=== PATIENT | female | born 1995 | race Two or more races ===

== ENCOUNTER 2017-05-07 20:24 | Emergency (ER) | payer MEDICAID, OTHER ==
[~2017-05-07] VITALS: Ht 160 cm; Wt 98.0 kg
[2017-05-07 21:02] VITALS: BP 117/69
== END 2017-05-07 22:09 | disposition home or self-care (01) ==
LOC: ER 20:30
DX: R05 Cough (principal)
CPT/HCPCS: 84703-TC; A4606; Z7610

== ENCOUNTER 2017-08-17 15:06 | Emergency (ER) | payer MEDICAID ==
[~2017-08-17] VITALS: Ht 157.5 cm; Wt 95.3 kg
[2017-08-17 15:19] VITALS: BP 115/75
== END 2017-08-17 15:47 | disposition home or self-care (01) ==
LOC: ER 15:10
DX: H66.91 Otitis media, unspecified, right ear (principal)
CPT/HCPCS: A4606; Z7610

== ENCOUNTER 2017-09-02 16:38 | Emergency (ER) | payer MEDICAID ==
[~2017-09-02] VITALS: Ht 162.6 cm; Wt 97.5 kg
--- NOTE | 2017-09-02 16:40 | NUR ---
BIB SELF C/O LEFT SIDED CHEST PAIN, WORSE ON DEEP INHALATION X 3 DAYS, NAD NOTED, VSS RESP EVEN AND UNLABORED, PUT ON HOSPITAL GOWN AND MONITOR. WAITING FOR MD GUERRA.
[2017-09-02 17:29] LABS: BASOPHILS % (AUTO) 0.3 % (0.0-2.0); EOSINOPHILS # (AUTO) 0.2 /CMM (0.0-0.7); EOSINOPHILS % (AUTO) 1.9 % (0.0-6.0); HEMATOCRIT 43 % (33-45); HEMOGLOBIN 13.9 g/dL (11.5-14.8); LYMPHOCYTES # (AUTO) 2.8 /CMM (0.8-4.8); LYMPHOCYTES % (AUTO) 23.6 % (20.0-44.0); MEAN CORPUSCULAR HEMOGLOBIN 28 PG (26.0-33.0); MEAN CORPUSCULAR HGB CONC 33 g/dl (31.0-36.0); MEAN CORPUSCULAR VOLUME 86 fL (82-100); MONOCYTES # (AUTO) 0.8 /CMM (0.1-1.30); NEUTROPHILS % (AUTO) 67.2 % (43.0-81.0); PLATELET COUNT (AUTO) 467 /CMM (150-450); RDW COEFFICIENT OF VARIATION 12.4 (11.5-15.0); RED BLOOD CELL COUNT(AUTO) 4.93 MIL/uL (4.0-5.2); WHITE BLOOD COUNT (AUTO) 11.8 K/uL (4.3-11.0)
[2017-09-02 17:43] LABS: CALCIUM, SERUM 8.7 mg/dL (8.5-10.1); CARBON DIOXIDE 30 mmol/L (21-32); CHLORIDE 107 mmol/L (98-107); CREATININE 0.8 mg/dL (0.6-1.3); GLUCOSE 107 mg/dL (74-106); SODIUM SERUM 143 mmol/L (136-145); UREA NITROGEN, BLOOD 9 mg/dL (7-18)
[2017-09-02 17:53] LABS: TROPONIN I < 0.017 ng/mL (0.00-0.056)
[2017-09-02 18:02] LABS: D-DIMER 0.57 mg/L(FEU (0.17-0.50); INR 0.94 (0.87-1.13); PROTHROMBIN TIME 9.8 SECS (9.5-12.7)
[2017-09-02] MEDS ORDERED: IOHEXOL-350 100 ML VIAL IV ONE (18:32)
[2017-09-02] MEDS ORDERED: IV NS 0.9% 250 ML IV ONE (18:32)
[2017-09-02] MEDS ORDERED: CT SWABBABLE VALVE TRANS SET 1 EA INFUS.SET MC ONE (18:32)
--- NOTE | 2017-09-02 18:32 | NUR ---
PT TO [facility]AN
--- NOTE | 2017-09-02 18:45 | NUR ---
PATIENT RETURNED FROM CT IN STABLE CONDITION.
[2017-09-02 19:45] VITALS: BP 127/73
--- NOTE | 2017-09-02 19:51 | NUR ---
Patient discharged to home in stable condition. Written and verbal after care instructions given. Patient verbalizes understanding of instruction.IV removed. Catheter intact and site benign. Pressure and 4x4 applied to site. No bleeding noted. Prescription given.
[2017-09-02] MEDS ORDERED: KETOROLAC TROMETHAMINE INJ 30 MG/ML VIAL IV ONE (20:00)
[2017-09-02] MEDS ORDERED: MORPHINE SULFATE INJ 2 MG/ML DISP.SYRIN IV ONE (20:00)
== END 2017-09-02 19:50 | disposition home or self-care (01) ==
LOC: ER 16:42
DX: R07.89 Other chest pain (principal)
CPT/HCPCS: 36415; 71010; 71275; 80048; 84484; 84703; 85025; 85378; 85730; 93005; 99285; A4606; J7050; Q9967; Z7610

== ENCOUNTER 2020-02-07 13:32 | Emergency (ER) | payer MEDICAID ==
[~2020-02-07] VITALS: Ht 162.6 cm; Wt 99.8 kg
--- NOTE | 2020-02-07 13:41 | NUR ---
c/o dysuria and burning sensation x 4 days. AFEBRILE, DENIES SOB, DIZZINESS, WEAKNESS, N/V. RR EVEN AND UNLABORED ON RA. NO ACUTE DISTRESS NOTED. MADE COMFORTABLE AND READY FOR EVAL.
[2020-02-07 13:49] LABS: APPEARANCE,URINE Cloudy (CLEAR); BILIRUBIN,URINE Negative (NEGATIVE); BLOOD, URINE Moderate Ery/uL (NEGATIVE); COLOR,URINE Yellow (YELLOW); KETONES,URINE Negative (NEGATIVE); LEUKOCYTE ESTERASE ,URINE Large (NEGATIVE); NITRITE, URINE Negative (NEGATIVE); PROTEIN,URINE 100 mg/dl (NEGATIVE); UGLUCOSE Negative (NEGATIVE); UROBILINOGEN,URINE 0.2 EU/dL (0.2)
[2020-02-07 14:16] LABS: BACTERIA,URINE 3+ /HPF (None Seen); MUCUS,URINE Moderate /LPF (None Seen); RBC,URINE 81-100 /HPF (0-2); SQUAMOUS EPITHELIAL CELL,UR Moderate /HPF (None Seen); WBC,URINE TOO NUMEROUS TO COUN /HPF (0-3)
--- NOTE | 2020-02-07 14:19 | NUR ---
Patient discharged to home in stable condition. Written and verbal after care instructions given. Patient verbalizes understanding of instruction.
[2020-02-07 14:21] VITALS: BP 127/72
== END 2020-02-07 14:22 | disposition home or self-care (01) ==
LOC: ER 13:36
DX: N30.00 Acute cystitis without hematuria (principal)
CPT/HCPCS: 81000-TC; 84703-TC; 87086-TC; 87186-TC

== ENCOUNTER 2023-01-30 16:25 | Emergency (ER) | payer MEDICAID, OTHER ==
[~2023-01-30] VITALS: Ht 157.5 cm; Wt 115.7 kg
[2023-01-30] MEDS ORDERED: IV NS 0.9% 1,000 ML BAG IV ONE (20:00)
[2023-01-30] MEDS ORDERED: ONDANSETRON HCL/PF 4 MG/2 ML VIAL IVP ONE (20:00)
[2023-01-30] MEDS ORDERED: ONDANSETRON HCL/PF 4 MG/2 ML VIAL ONE (20:09)
--- NOTE | 2023-01-30 20:15 | NUR ---
RECEIVED PT INSIDE RM 19 CAME WITH CC OF VOMITING AND DIARRHEA X 5 DAYS AFTER "EATING CHICKEN". PATIENT IS AAOX4. ABLE TO MAKE NEEDS KNOWN. PLACED COMFORTABLY IN CHAIR. VITALS CHECKED.
--- NOTE | 2023-01-30 20:24 | NUR ---
IV CANNULA G20 INSERTED ON RIGHT AC. BLOOD DRAWN AND SENT TO LAB
[2023-01-30 20:35] LABS: BASOPHILS % (AUTO) 0.5 % (0.0-2.0); EOSINOPHILS % (AUTO) 1.9 % (0.0-6.0); HEMATOCRIT 42 % (33-45); HEMOGLOBIN 13.6 g/dL (11.5-14.8); LYMPHOCYTES # (AUTO) 2.2 K/uL (0.8-4.8); LYMPHOCYTES % (AUTO) 21.6 % (20.0-44.0); MEAN CORPUSCULAR HGB CONC 33 g/dl (31.0-36.0); MEAN CORPUSCULAR VOLUME 85 fL (82-100); MONOCYTES # (AUTO) 0.5 K/uL (0.1-1.30); MONOCYTES % (AUTO) 5.2 % (2.0-12.0); NEUTROPHILS # (AUTO) 7.2 K/uL (1.8-8.9); NEUTROPHILS % (AUTO) 70.8 % (43.0-81.0); PLATELET COUNT (AUTO) 336 K/uL (150-450); RED BLOOD CELL COUNT(AUTO) 4.97 MIL/uL (4.0-5.2); WHITE BLOOD COUNT (AUTO) 10.1 K/uL (4.3-11.0)
--- NOTE | 2023-01-30 20:58 | NUR ---
URINE SPECIMEN SENT TO LAB
[2023-01-30 21:17] LABS: CALCIUM, SERUM 8.6 mg/dL (8.5-10.1); CREATININE 0.9 mg/dL (0.6-1.3); POTASSIUM 3.5 mmol/L (3.5-5.1)
[2023-01-30 21:22] LABS: ALBUMIN 3.8 g/dL (3.4-5.0); BILIRUBIN,DIRECT 0.1 mg/dL (0.0-0.2); BILIRUBIN,TOTAL 0.4 mg/dL (0.2-1.0)
[2023-01-30 22:09] LABS: BILIRUBIN,URINE 1+ (NEGATIVE); COLOR,URINE YELLOW (YELLOW); LEUKOCYTE ESTERASE ,URINE NEGATIVE (NEGATIVE); NITRITE, URINE NEGATIVE (NEGATIVE); PROTEIN,URINE NEGATIVE (NEGATIVE); UGLUCOSE NEGATIVE (NEGATIVE)
[2023-01-30 22:18] LABS: BACTERIA,URINE RARE /HPF (None Seen); WBC,URINE 0-2 /HPF (0-3)
[2023-01-30] MEDS ORDERED: ONDA4TAB11 PO (22:21)
--- NOTE | 2023-01-30 22:40 | NUR ---
IV removed. Catheter intact and site benign. Pressure and 4x4 applied to site. No bleeding noted.Patient discharged to home in stable condition. Written and verbal after care instructions given. Patient verbalizes understanding of instruction.
[2023-01-30 23:29] VITALS: BP 105/68
== END 2023-01-30 23:29 | disposition home or self-care (01) ==
LOC: ER 16:33
DX: A08.4 Viral intestinal infection, unspecified (principal); R11.2 Nausea with vomiting, unspecified; R19.7 Diarrhea, unspecified
CPT/HCPCS: 99283; 96374; 96361; 85025; 80048; 83690; 80076; 84703; 81001; 36415; J2405; J7030

== ENCOUNTER 2025-07-13 21:44 | Emergency (ER) | payer OTHER ==
[~2025-07-13] VITALS: Ht 162.6 cm; Wt 108.9 kg
[~2025-07-13 21:44] MED LIST: ONDA4TAB11 PO
[2025-07-14 01:00] LABS: APPEARANCE,URINE SLIGHTLY CLOUDY (CLEAR); BLOOD, URINE 2+ Ery/uL (NEGATIVE); LEUKOCYTE ESTERASE ,URINE 1+ (NEGATIVE); NITRITE, URINE NEGATIVE (NEGATIVE); UGLUCOSE NEGATIVE (NEGATIVE)
[2025-07-14 01:06] LABS: ADD URINE CULTURE YES; SQUAMOUS EPITHELIAL CELL,UR Many /HPF (None Seen)
[2025-07-14 01:07] LABS: PREGNANCY TEST URINE QUAL NEGATIVE (NEGATIVE); YEAST,URINE Few /HPF (None Seen)
[2025-07-14] MEDS ORDERED: NITR100C6 PO (01:13)
[2025-07-14] MEDS ORDERED: NITROFURANTOIN/MONOHYDRATE MACROCRYSTALS 100 MG CAPSULE PO ONE (01:30)
[2025-07-14 04:49] VITALS: BP 131/80; TEMP 98.3; O2SAT 98
== END 2025-07-14 04:50 | disposition home or self-care (01) ==
LOC: ER 22:14
DX: N39.0 Urinary tract infection, site not specified (principal)
CPT/HCPCS: 81001; 84703-TC